=== PATIENT | male | born 1945 | race Caucasian/White ===

== ENCOUNTER 2018-05-10 19:35 | Emergency (ER) | payer MEDICARE, MEDICAID ==
[~2018-05-10] VITALS: Ht 162.6 cm; Wt 73.6 kg
[2018-05-10] MEDS ORDERED: ADV100 IH (19:55)
[2018-05-10] MEDS ORDERED: COMBISP IH (19:55)
[2018-05-10] MEDS ORDERED: ATOR10TA84 PO (19:55)
[2018-05-10] MEDS ORDERED: MORPHINE SULFATE 4 MG/ML SYRINGE IM ONE (20:30)
[2018-05-10] MEDS ORDERED: KETOROLAC TROMETHAMINE 60 MG/2 ML VIAL IM ONE (20:30)
[2018-05-10 21:16] VITALS: BP 142/73
== END 2018-05-10 21:57 | disposition home or self-care (01) ==
LOC: EMS 19:36
DX: S43.004A Unspecified dislocation of right shoulder joint, initial encounter (principal); J44.9 Chronic obstructive pulmonary disease, unspecified; E78.00 Pure hypercholesterolemia, unspecified; F17.210 Nicotine dependence, cigarettes, uncomplicated; W18.39XA Other fall on same level, initial encounter; Y93.89 Activity, other specified; Y92.89 Other specified places as the place of occurrence of the external cause; Y99.8 Other external cause status
CPT/HCPCS: 23650; 73030; 96372; 99284; J1885; J2270; 29240